=== PATIENT | female | born 1960 | race American Indian/Alaskan Native ===

== ENCOUNTER 2020-11-10 22:25 | Emergency (ER) | payer BC ==
--- NOTE | 2020-11-11 02:16 | Emergency Department Report ---
ED General Adult HPI - General Chief complaint: Allergic Reaction Stated complaint: INSECT BITE, ALEERGIC REACTION Time Seen by Provider: 11/11/20 01:49 Source: patient Mode of arrival: Ambulatory Limitations: No Limitations - History of Present Illness Initial comments: 60-year-old female patient presents emergency department with complaints of painful erythema to her left arm starting 2 days ago. Patient suspects she may have been bitten by an insect prior to the onset of her symptoms. She has not taken any medication for pain. She has not been on any antibiotics recently. No known history of MRSA. Denies fever, chills, numbness, paresthesias, weakness. Denies all other complaints at this time. - Related Data Previous Rx's Medication Instructions Recorded Last Taken Type Sulfamethoxazole/Trimethoprim 1 each PO BID 7 Days tablet 11/11/20 Unknown Rx [Bactrim DS TAB] Allergies Allergy/AdvReac Type Severity Reaction Status Date / Time codeine Allergy Hives Verified 11/10/20 23:46 latex Allergy Itching Verified 11/10/20 23:47 lisinopril Allergy Hives Verified 11/10/20 23:47 ED Review of Systems ROS: Stated complaint: INSECT BITE, ALEERGIC REACTION Other details as noted in HPI Other: GENERAL: Negative for fever, chills, weight change, anorexia, fatigue. ENT: Negative for ear pain, difficulty hearing, sore throat, nasal congestion, epistaxis. CARDIOVASCULAR: Negative for chest pain, palpitations, lower extremity swelling. PULMONARY: Negative for cough, dyspnea, wheezing, orthopnea, cyanosis. GASTROINTESTINAL: Negative for abdominal pain, nausea, vomiting, diarrhea, constipation. MUSCULOSKELETAL: Negative for joint pain, joint swelling, myalgias, back pain, neck pain. NEUROLOGICAL: Negative for headache, seizure, syncope, paresthesias, weakness. INTEGUMENTARY: Positive for painful erythema. HEMATOLOGICAL: Negative for hemoptysis, hematemesis, hematochezia, hematuria. PSYCHIATRIC: Negative for hallucinations, suicidal ideation, homicidal ideation, anxiety, depression. ED Past Medical Hx - Past Medical History Previous Medical History?: Yes Hx Hypertension: Yes Hx Diabetes: Yes Hx Arthritis: Yes Hx Asthma: Yes Additional medical history: Fibromylgia. Rheumatic Fever. Rubella - Surgical History Past Surgical History?: Yes Additional Surgical History: X 2. Right Breast Lumpectomy. Tubal Ligation - Social History Smoking Status: Never Smoker Substance Use Type: None - Medications Home Medications: Home Medications Medication Instructions Recorded Confirmed Last Taken Type Sulfamethoxazole/Trimethoprim 1 each PO BID 7 Days tablet 11/11/20 Unknown Rx [Bactrim DS TAB] ED Physical Exam - General Limitations: No Limitations - Other Other exam information: General: Awake, appropriately interactive, no acute distress. Neck: Supple. Full range of motion intact. Cardiovascular: Normal peripheral perfusion. Pulmonary: No respiratory distress. Patient is speaking normally without use of accessory muscles. Skin: Warmth and erythema noted to the proximal forearm and left antecubital area. No crepitus. Full range of motion of the elbow is intact and painless in all directions. Pain is appropriately proportional to exam findings. Distal neurovascular and motor/sensory function intact. Neurological: No facial asymmetry. Speech is clear. Follows commands. Patient is alert and oriented. Musculoskeletal: Moves all four extremities spontaneously with normal range of motion. Psych: Cooperative. Appropriate mood and affect. ED Course Vital Signs 11/10/20 11/11/20 23:31 02:25 Temperature 98.7 F Pulse Rate 66 74 Respiratory 18 18 Rate Blood Pressure 132/80 O2 Sat by Pulse 97 100 Oximetry ED Medical Decision Making - Medical Decision Making Differential diagnosis including but not limited to: cellulitis, erysipelas, contact dermatitis, tinea corporis Patient presents to the emergency department with signs/symptoms consistent with uncomplicated nonpurulent cellulitis. She is afebrile, hemodynamically stable, neurologically intact. Pain is appropriately proportional to exam findings without clinical evidence to suggest septic arthritis or necrotizing soft tissue infection. No clinical indication for further diagnostic work-up on an emergent basis at this time. Patient will be discharged home with prescription for Bactrim per current IDSA guidelines and referred to primary care provider for close outpatient follow-up. Patient expressed understanding and is agreeable to plan of care. Strict return precautions provided. Repeat exam is unremarkable and benign. History, exam, diagnostic testing, and current condition do not suggest worrisome pathology to warrant further testing, continued ED treatment, admission, or surgical evaluation at this point. Given the low probability of a significant medical illness, it would be more likely to result in harm than benefit to perform further testing at this stage. Discussed findings, presumptive diagnosis, need for follow-up and specific signs/symptoms that should prompt immediate return to the emergency department. Instructions were explained in detail to the patient in addition to giving written discharge information. Patient expressed understanding and was given the opportunity to ask questions, all of which were satisfactorily answered prior to discharge home. Critical care attestation.: If time is entered above; I have spent that time in minutes in the direct care of this critically ill patient, excluding procedure time. ED Disposition Clinical Impression: Left arm cellulitis Disposition: - TO HOME OR SELFCARE Is pt being admited?: No Does the pt Need Aspirin: No Condition: Stable Instructions: Cellulitis, Adult, [id number] Additional Instructions: Take Tylenol every 4 hours and Motrin every 8 hours as needed for pain. Take Benadryl at nighttime as needed for itching. Take Bactrim with food as directed. Increase your dietary intake of probiotic rich foods while taking this medication. Follow-up with your primary care provider this week. Call Friday to schedule an appointment. Return to the emergency department immediately for new or worsening symptoms. Prescriptions: Sulfamethoxazole/Trimethoprim [Bactrim DS TAB] 1 each PO BID 7 Days tablet Referrals: ANISHA AC MD [Primary Care Provider] - 3-5 Days Time of Disposition: 02:16
== END 2020-11-11 02:25 | disposition home or self-care (01) ==
LOC: ED 22:25
CPT/HCPCS: 99282